=== PATIENT | male | born 1960 | race Caucasian/White ===

== ENCOUNTER → 2018-12-22 14:48 | Outpatient (CLI) | payer MEDICARE, MEDICAID, SELFPAY ==
--- NOTE | 2018-12-22 15:22 | CT_ITS ---
STUDY: CT PELVIS WITHOUT CONTRAST REASON FOR EXAM: Male, 58 years old. Nonpalpable mass of the right buttock RADIATION DOSAGE (If Supplied By Facility): CTDIvol = ( 27.99 ) mGy, DLP = ( 1045.03 ) mGycm TECHNIQUE: Transaxial imaging of the pelvis was performed without oral contrast, and without intravenous administration of contrast material. Multiplanar coronal and sagittal images were reformatted. Individualized dose optimization techniques were used for this CT. COMPARISON: None. FINDINGS: Normal urinary bladder. Normal visualized small intestine. There are multiple colonic diverticula of the sigmoid colon consistent with chronic diverticulosis. There is no pelvic fluid. There is no pelvic lymphadenopathy. There is diffuse atherosclerotic calcification of the pelvic arteries. There is catheter in the right lower abdominal wall entering to the peritoneal cavity. There is degenerative change of the lower spine. There is mild sacroiliac spurring. There is mild spurring of the bilateral hips. There is focal asymmetric enlargement of the right gluteus fior, corresponding to the region of mass, series 2 images 65/87 through 70/87. There is adjacent subcutaneous edema. CT/Pelvis without IV Contrast IMPRESSION: Muscular enlargement of the right gluteus foir suggesting hematoma versus recent strain. Electronically Signed: Lambert Jean MD at 19:37 EDT , Service support ,
== END ==
PROVIDERS: Family Provider Family Medicine; PCP Family Medicine; Referring Provider Nurse Practitioner Adult Health; Visit Provider Nurse Practitioner Adult Health
DX: R22.2 Localized swelling, mass and lump, trunk (principal)
CPT/HCPCS: 72192

== ENCOUNTER → 2019-01-08 09:22 | Outpatient (CLI) | payer MEDICARE, MEDICAID, SELFPAY ==
[2018-12-29 13:52] VITALS: BMI 25.7
--- NOTE | 2019-01-08 09:25 | CT_ITS ---
STUDY: CT ABDOMEN AND PELVIS WITH CONTRAST REASON FOR EXAM: Male, 58 years old. Right Gluteal swelling RADIATION DOSAGE (If Supplied By Facility): CTDIvol = ( 12.12 ) mGy, DLP = ( 986.94 ) mGycm TECHNIQUE: Transaxial images were obtained from the dome of the diaphragm to the symphysis pubis without oral contrast. IV/Oral Isovue 370 100 was administered. Sagittal and coronal images were reconstructed. Individualized dose optimization techniques were used for this CT. COMPARISON: December 22, 2018 CT scan pelvis FINDINGS: The visualized lung bases are unremarkable. The visualized portions of the heart are within normal limits. Normal liver. Normal gallbladder and extrahepatic biliary system. There are multiple benign calcified granulomata of the spleen. Normal pancreas. Normal bilateral adrenal glands. 4.7 mm cyst in the right kidney there is no evidence of hydronephrosis. Normal left kidney. There is contrast in the stomach. Normal small intestine. There is moderate stool in the colon. There is diverticulosis without diverticulitis. The appendix is visualized and appears normal. The aorta is minimally calcified. There is calcification at the bifurcation with up to moderate narrowing of the right side common iliac its takeoff. There is a suggestion of possible minimal focal dissection involving the right common iliac versus artifact image #68. Normal inferior vena cava. There are a few nonspecific retroperitoneal lymph nodes. There is a ventricular peritoneal shunt extending into the right side of the abdomen at the level of the cecum with a termination point in the mid abdomen. Normal urinary bladder. The prostate appears minimally enlarged. It measures 4.1 x 5 cm. Again noted is a enlarged appearance of the right peripheral gluteus fior muscles and extends towards the insertion in the greater trochanter.. There is mild focal center located edema without definitive focal abscess formation. There is peripheral soft tissue edema. When compared to the prior study is relatively similar in appearance although today's study contains contrast and there is visualized enhancement. In that area there is not only a thickened appearance of the muscular structures but there is also increased vascularity. There is fairly similar-appearing enthesopathy at the greater trochanters. There is multilevel degenerative change within the lumbar spine with multilevel osteophytosis. At L4-L5 there is a minimal broad disc bulge without significant neural foramina narrowing or central stenosis. L5-S1 there is a minimal broad disc bulge with minimal neural foramina narrowing. Within the right side of the ilium there is a sclerotic density measuring 2.4 mm and 2.7 mm. There is a small sclerotic density within the right acetabulum that measures 2.8 mm. There is one in the left side acetabulum. CT/Abdomen/Pelvis WITH Contrast IMPRESSION: There is a fairly diffusely enhancing focus of the right side lateral gluteus muscles towards the insertion at the greater trochanter best seen on image #[id number] -[id number] axial views without definitive focal mass. There is increased vascularity and mild centrally located edema without definitive abscess formation. There is superficial edema subcutaneous. Consider history of trauma or chronic trauma, this could represent a injury to the muscle, possible myositis. Recommend correlation any history of trauma or injection into the muscle. Alternatively this could represent a potentially more infiltrative intramuscular process. Recommend consideration for MRI of the pelvis with particular attention to the gluteus muscles for further characterization as MRI is more specific for soft tissue injuries. Ventricular peritoneal shunt. Nonspecific small sclerotic densities within the pelvis is a fairly well-circumscribed and nonspecific recommend correlation with any history of neoplasm for osteoblastic disease. Potentially a bone scan would be helpful. Constipation and diverticulosis no evidence of diverticulitis. 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 Limited visualization of the lung bases. Electronically Signed: Blaire Everett MD at 9:47 EST Tel , Service support ,
== END ==
PROVIDERS: Family Provider Family Medicine; PCP Family Medicine; Referring Provider Surgery; Visit Provider Surgery
DX: R22.2 Localized swelling, mass and lump, trunk (principal)
CPT/HCPCS: 74177; Q9967

== ENCOUNTER → 2020-08-09 14:20 | Outpatient (CLI) | payer MEDICARE, MEDICAID, SELFPAY ==
[2020-07-18 10:23] VITALS: BMI 25.7
--- NOTE | 2020-08-09 14:23 | CT_ITS ---
EXAM: CT HEAD WITHOUT INTRAVENOUS CONTRAST : 1960 CLINICAL INDICATION: History of intracerebral hemorrage Tamp; shunt TECHNIQUE: Multiple axial images were obtained of the head without intravenous contrast. This CT exam was performed using one or more of the following dose reduction techniques: automated exposure control, adjustment of the mA and/or kV according to patient size, and/or use of iterative reconstruction technique. This report was created using [employer] report generation technology. COMPARISON: None. FINDINGS: BRAIN AND EXTRA-AXIAL SPACES: There is minimal encephalomalacia in the posterior left temporal lobe. No intra- or extra-axial hemorrhage. BONES/JOINTS: There are postsurgical changes from a right sided craniotomy. No discrete lytic or blastic abnormalities. SINUSES: Unremarkable as visualized. Clear. MASTOID AIR CELLS: Unremarkable. Clear. ORBITS: Visualized globes, extraocular muscles, optic nerves and retrobulbar fat appear unremarkable. TUBES, LINES AND DEVICES: Ventricular shunt is in place entering from the right frontal lobe with the distal tip in the region of the anterior third ventricle. CT/Brain/Head without Contrast IMPRESSION: 1. No acute intracranial abnormality. 2. There are postsurgical changes with a right ventricular shunt in place. There is also encephalomalacia in the left temporal lobe which may be from a remote infarct. Individualized dose optimization techniques were used for this CT. at 5201 Reported and signed by: Yovani Castano MD Electronically Signed: Yovani Castano MD at 23:16 EDT Tel , Service support ,
== END ==
PROVIDERS: PCP Family Medicine; Referring Provider Psychiatry & Neurology Neurology; Visit Provider Psychiatry & Neurology Neurology
DX: G93.89 Other specified disorders of brain (principal)
CPT/HCPCS: 70450

== ENCOUNTER 2022-07-11 16:46 | Inpatient (IN) | payer MEDICARE, MEDICAID, SELFPAY ==
[2022-07-11] VITALS (10 sets, daily range): BP systolic 104–154; BP diastolic 72–92; PULSE 72–90; RESP 14–18; TEMP 35.8–36.6; O2SAT 94–99; BMI 25.7; BMI 26.9; BMI 25.4
--- NOTE | 2022-07-11 16:49 | CT_ITS ---
We are attempting to reach an attending provider to discuss findings. An addendum with communication details will be sent when the communication is complete. EXAMINATION : Head CT w/out contrast HISTORY : Neuro deficit, acute, stroke suspected COMPARISON : None. TECHNIQUE : Multiple contiguous axial images were obtained from the skull base to the vertex without intravenous contrast. A radiation dose optimization technique was used for this scan. FINDINGS : There is no evidence for acute intracranial hemorrhage, mass effect, or midline shift. There is no extra-axial fluid collection. Right parietal approach ventriculostomy catheter ending in the third ventricle. There are periventricular white matter changes consistent with chronic microvascular ischemic disease. There is sulcal widening and ventricular enlargement consistent with cerebral atrophy. There is normal marquez-white differentiation, without CT evidence of acute ischemia or infarct. Left temporal encephalomalacia. Stable 1.2 cm area of heterogeneous hyperattenuation in the left medulla. The skull base and calvarium are unremarkable. The orbits are unremarkable. The paranasal sinuses are clear. The mastoid air cells are well-aerated. The soft tissues are unremarkable. CT/STROKE Brain/Head without Cont IMPRESSION: No acute intracranial abnormality. 1.2 cm area of heterogeneous hyperattenuation in the left medulla, unchanged since prior on 08/09/2020. Left temporal encephalomalacia. Right parietal approach ventriculostomy catheter ending in the third ventricle. Chronic involutional and ischemic changes of the brain. Electronically Signed: Aiden Patel MD at 17:04 EDT ,
--- NOTE | 2022-07-11 16:49 | EKG12_ITS ---
Test Reason : POSS STROKE Blood Pressure : / mmHG Vent. Rate : 087 BPM Atrial Rate : 087 BPM P-R Int : 168 ms QRS Dur : 102 ms QT Int : 400 ms P-R-T Axes : 057 047 047 degrees QTc Int : 481 ms Normal sinus rhythm Prolonged QT Abnormal ECG Confirmed by RA AKINS, TORSTEN ([id number]), manuscript editor ROBBI ARMSTRONG ([id number]) on 07/15/2022 2:30:00 PM Referred By: Confirmed By:ALMA KNAPP MD
--- NOTE | 2022-07-11 16:49 | CT_ITS ---
We are attempting to reach an attending provider to discuss findings. An addendum with communication details will be sent when the communication is complete. STUDY: CTA HEAD AND NECK WITH CONTRAST REASON FOR EXAM: Male, 62 years old. CVA. Facial droop. RADIATION DOSAGE (If Supplied By Facility): CTDIvol = ( 22.13 ) mGy, DLP = ( 699.74 ) mGycm TECHNIQUE: CT angiography was performed with a multi-detector CT scanner. Data acquisition was obtained from the skull base through the vertex following intravenous administration of IV 100mL Isovue-370. MIP images were reconstructed from the axial data set. Post-processing of the angiographic images was performed, with multiplanar reformation and 3D reconstruction. Individualized dose optimization techniques were used for this CT. COMPARISON: CT of the head, July 11, 2022 FINDINGS: Normal bilateral petrous carotid arteries. There is calcified plaque formation of the right cavernous carotid artery, with a mild stenosis (less than 50%). There is calcified plaque formation of the left cavernous carotid artery, with a mild stenosis (less than 50%). Normal right A1 segments of the anterior cerebral artery. Normal left A1 segments of the anterior cerebral artery. Normal intact anterior communicating artery (ACOM). Normal bilateral A2 segments of the anterior cerebral arteries. Normal right M1 and M2 segments of the middle cerebral arteries, with a normal M1 bifurcation. Normal left M1 and M2 segments of the middle cerebral arteries, with a normal M1 bifurcation. There is non-visualization of the right posterior communicating artery (PCOM). There is non-visualization of the left posterior communicating artery (PCOM). Normal bilateral vertebral arteries. Normal basilar artery with a normal basilar bifurcation. The visualized bilateral superior cerebellar (SCA) arteries are normal. Normal bilateral P1, P2 and visualized P3 segments of the posterior cerebral arteries. There is no demonstrated aneurysm of the [place]. Stable right-sided [employer] shunt catheter. AORTIC ARCH: Atherosclerotic changes of the aortic arch without dissection or aneurysm. Normal origins of the brachiocephalic, left common carotid, and left subclavian arteries. RIGHT CAROTID ARTERIES: Normal right common carotid artery (CCA). Minimal calcific plaque at the carotid bifurcation without stenosis. Normal origin of the right internal carotid (ICA) artery without a hemodynamically significant stenosis. Normal visualized cervical portion of the right internal carotid artery. Normal origin of the right external carotid artery (ECA). LEFT CAROTID ARTERIES: Normal left common carotid artery (CCA). Normal left common carotid bulb. Normal origin of the left internal carotid (ICA) artery without a hemodynamically significant stenosis. Normal visualized cervical portion of the left internal carotid artery. Normal origin of the left external carotid artery (ECA). VERTEBRAL ARTERIES: Normal bilateral vertebral arteries. CT/STROKE CTA Head AND Neck W/Con IMPRESSION: 1. Normal CTA of the head. There is no evidence of aneurysm or large vessel occlusion 2. Minimal atherosclerotic changes of the right carotid bifurcation. Otherwise normal carotid and vertebral arteries. Electronically Signed: Isaak Landaverde DO at 17:18 EDT ,
--- NOTE | 2022-07-11 16:51 | NURSING ---
[id number] STROKE ALERT CALLED PRIOR TO ARRIVAL
--- NOTE | 2022-07-11 16:54 | ED.VIS.STROK ---
HPI History of Present Illness Chief Complaint: Stroke Alert Detail of Chief Complaint: Concern for stroke Informant: patient Narrative Narrative: Patient presents to the emergency department via EMS with concern for possible stroke. Patient was last seen well about 1500 today. Patient from [facility]. Patient apparently had a fall at approximately 11:15 AM and sustained a goose egg to the posterior part of his head. Patient apparently not on blood thinners. Does have history of seizure. Patient was noted to have per EMS a facial droop and creased responsiveness and generalized weakness in route to the hospital. Patient really cannot give me much history and is difficult to understand as he is speech is very thick and garbled. [facility] Medical History (Updated 07/11/22 @ 18:[address] Anahy Denny, DO) Abnormal posture Angina pectoris, unspecified Cerebrovascular disease, unspecified Diplopia Dysphagia, oropharyngeal phase Essential (primary) hypertension Expressive language disorder Gastro-esophageal reflux disease without esophagitis hematoma buttocks Hyperlipidemia, unspecified Hypertension Nicotine dependence, unspecified, uncomplicated Other dysphagia Unspecified abnormal involuntary movements Unspecified cataract Unsteadiness on feet Vitamin D deficiency, unspecified Home Medications atenolol 50 mg tablet 50 mg PO DAILY 12/29/18 [History Last Taken Unknown] atorvastatin 10 mg tablet 10 mg PO DAILY 12/29/18 [History Last Taken Unknown] bisacodyl 5 mg tablet (Laxative (bisacodyl)) 10 mg PO .prn 12/29/18 [History Last Taken Unknown] cholecalciferol (vitamin D3) 25 mcg (1,000 unit) capsule 2,000 unit PO DAILY 12/29/18 [History Last Taken Unknown] docusate sodium 100 mg capsule 100 mg PO DAILY 12/29/18 [History Last Taken Unknown] isosorbide mononitrate 30 mg tablet,extended release 24 hr 30 mg PO DAILY 12/29/18 [History Last Taken Unknown] lisinopril 10 mg tablet 10 mg PO DAILY 12/29/18 [History Last Taken Unknown] loperamide 2 mg tablet (Anti-Diarrheal (loperamide)) 2 mg PO Q1-4H 12/29/18 [History Last Taken Unknown] nitroglycerin 0.4 mg sublingual tablet (Nitrostat) 0.4 mg sublingual Q5-15M 12/29/18 [History Last Taken Unknown] promethazine 25 mg tablet 25 mg PO Q6H 12/29/18 [History Last Taken Unknown] albuterol sulfate 2.5 mg/3 mL (0.083 %) solution for nebulization 2.5 mg inhalation Q4H PRN sob 07/31/20 [History Last Taken Unknown] calcium carbonate 500 mg calcium (1,250 mg) capsule 500 mg PO Q6H PRN heart burn 07/31/20 [History Last Taken Unknown] omeprazole 20 mg capsule,delayed release 20 mg PO DAILY 07/31/20 [History Last Taken Unknown] sodium phosphates 9.5 gram-3.5 gram/59 mL enema 118 ml NM ONCE PRN constipation 07/31/20 [History Last Taken Unknown] calcium carbonate 200 mg calcium (500 mg) chewable tablet (Antacid (calcium carbonate)) 400 mg PO Q6H PRN 09/25/20 [History Last Taken Unknown] magnesium hydroxide 400 mg/5 mL oral suspension (Milk of Magnesia) 30 ml PO DAILY PRN constipation 09/25/20 [History Last Taken Unknown] polyethylene glycol 3350 17 gram/dose oral powder 17 g PO DAILY PRN constipation 09/25/20 [History Last Taken Unknown] primidone 50 mg tablet 50 mg PO TID 09/25/20 [History Last Taken Unknown] Allergy/AdvReac Type Severity Reaction Status Date / Time No Known Allergies Allergy Verified 07/11/22 16:51 Surgical History (Updated 07/11/22 @ 18:[address] Anahy Denny, DO) Hx of brain surgery Social History Smoking Status: Current every day smoker tobacco type: cigarettes Tobacco: How many years used: 43 Electronic Cigarette Use: not used second hand exposure: No alcohol intake: never substance use type: does not use ROS ROS ED Review of Systems ROS Unobtainable: other Constitutional Constitutional ED: Reports lethargy; Denies chills, fever(s), sweats or weight loss Eyes Eyes: Denies blurry vision, change in vision or diplopia ENT ENT ED: Denies rhinorrhea or sore throat Cardiovascular Cardiovascular: Denies chest pain, orthopnea or racing heartbeat Respiratory/Chest Respiratory/Chest: Denies cough, dyspnea, dyspnea on exertion, orthopnea or sputum Gastrointestinal Gastrointestinal: Denies abdominal pain, diarrhea, nausea or vomiting Genitourinary Genitourinary ED: Denies dysuria, hematuria or urinary frequency Musculoskeletal Musculoskeletal: Denies arthralgias, back pain, myalgias or neck pain Integumentary Denies abscess, Abrasions or rash Neurologic Neurologic: Reports other Details: Facial droop and garbled speech, some of the garbled speech is chronic per nursing staff at [facility]. ; Denies headache(s) or weakness Psychiatric Psychiatric: Denies anxiety, depression or suicidal thoughts Endocrine Endocrinology: Denies polydipsia, polyphagia or polyuria Hematologic/Lymphatic Hematologic/Lymphatic: Denies easy bleeding, easy bruising or lymphadenopathy Allergic/Immunologic Allergic/Immunologic ED: Denies mouth swelling, tongue swelling or urticaria EXAM Physical Exam Const Vital Signs: 07/11/22 16:47 07/11/22 16:59 07/11/22 17:08 Temperature 96.4 F L Temperature Source Temporal Pulse Rate 82 88 89 Respiratory Rate 14 18 16 Blood Pressure 119/74 125/78 H 125/78 H Blood Pressure Mean 89 93 93 Pulse Ox 94 94 96 Oxygen Delivery Method Room Air Room Air Room Air 07/11/22 17:30 07/11/22 18:00 07/11/22 18:00 Temperature Temperature Source Pulse Rate 82 90 90 Respiratory Rate 16 18 Blood Pressure 124/76 H 127/78 H Blood Pressure Mean 92 94 Pulse Ox 99 95 Oxygen Delivery Method Room Air Room Air Positive well nourished and well developed General Appearance ED: well developed and NAD HEENT Reports TM's clear and moist mucous membranes normocephalic and atraumatic; Negative for trauma or tenderness Tympanic Membrane ED: Yes TM's clear Eyes PERRL and EOMs intact bilaterally Eyes Narrative: Patient with right facial droop General Eye ED: Negative for pale conjunctiva or scleral icterus Neck no lymphadenopathy, supple and no JVD General: Negative for tenderness Chest Wall inspection of chest normal and palpation of chest normal Chest: Negative for tenderness Resp normal respiratory effort and clear to auscultation bilaterally Effort and Inspection: Negative for respiratory distress or pain with movement Auscultation: Negative for rhonchi, wheezes or diminished lung sounds Cardio regular rate, regular rhythm, S1 normal heart sound, S2 normal heart sound and no murmurs Peripheral Pulses: pulses 2+ throughout GI normal to inspection, nondistended, normoactive bowel sounds, soft to palpation, non-tender, non-distended and no masses Back/Spine no CVA tenderness and no thoracic nor lumbar tenderness Extremity normal to inspection General Extremety ED: Negative for edema General Extremity: Negative for edema Neuro oriented x3, CN's II-XII intact bilaterally, no sensory deficits noted and gait normal Neuro Narrative: Right facial droop and dysarthria. NIH stroke scale was a 4. Sensorium / Orientation: awake, alert, oriented to person, oriented to place and oriented to time Motor Exam: strength 5/5 throughout and strength abnormal Psych mental status grossly normal Skin no rashes or lesions noted and no wounds MDM MDM MDM Narrative Medical decision making narrative: Patient presents via EMS with concern for possible stroke. Stroke team was called right away. NIH in the hallway was a 4 for slurred speech and right facial droop. CT brain without contrast obtained was unremarkable no evidence for intracranial hemorrhage. Patient was evaluated by stroke neurologist who did not feel patient met thrombolytic criteria given the fact that he has a CLINICAL LABORATORY DIRECTOR shunt and he had a fall earlier today and has had prior episodes of intracranial hemorrhage. It was unclear if patient was truly having stroke versus deficits from prior stroke versus metabolic encephalopathy. Lab work-up unremarkable. Urinalysis unremarkable. Troponin was normal. CT brain without contrast showed no evidence of intracranial hemorrhage. CTA of head neck showed mild plaque formation at the origin of the right carotid. Ammonia level was normal. CLINICAL LABORATORY DIRECTOR shunt obtained was unremarkable. Patient does not have a headache or concern for shunt malfunction at this time. Case discussed with hospitalist to evaluate patient for admission. Lab Data Attestation: I reviewed the patient's lab results. Labs: Laboratory Results - last 24 hr 07/11/22 07/11/22 07/11/22 17:00 17:00 17:00 WBC 6.1 RBC 4.76 Hgb 14.7 Hct 44.0 MCV 92.4 MCH 30.9 MCHC 33.4 RDW Std Deviation 48.1 H RDW Coeff of Jacqueline 14.2 Plt Count 178 MPV 10.3 Immature Gran % (Auto) 0.200 Neut % (Auto) 56.1 Lymph % (Auto) 30.1 [place] % (Auto) 9.4 Eos % (Auto) 3.5 Baso % (Auto) 0.7 Absolute Neuts (auto) 3.4 Absolute Lymphs (auto) 1.83 Nucleated RBC % 0 PT 14.2 INR 1.1 APTT 29.3 Sodium 142 Potassium 3.3 L Chloride 105 Carbon Dioxide 28.0 Anion Gap 9 BUN 14 Creatinine 0.72 Estim Creat Clear Calc 101.60 Est GFR (MDRD) Af Amer 143 Est GFR (MDRD) Non-Af 118 BUN/Creatinine Ratio 19.6 Glucose 110 H Calcium 8.4 L Ammonia Troponin I High Sens 4 Urine Color Urine Clarity Urine pH Ur Specific Chandler Urine Protein Urine Glucose (UA) Urine Ketones Urine Occult Blood Urine Nitrite Urine Bilirubin Urine Urobilinogen Ur Leukocyte Esterase Urine RBC Urine WBC Ur Squamous Epith Cells Urine Bacteria Urine Mucus 07/11/22 07/11/22 17:28 17:37 WBC RBC Hgb Hct MCV MCH MCHC RDW Std Deviation RDW Coeff of Jacqueline Plt Count MPV Immature Gran % (Auto) Neut % (Auto) Lymph % (Auto) [place] % (Auto) Eos % (Auto) Baso % (Auto) Absolute Neuts (auto) Absolute Lymphs (auto) Nucleated RBC % PT INR APTT Sodium Potassium Chloride Carbon Dioxide Anion Gap BUN Creatinine Estim Creat Clear Calc Est GFR (MDRD) Af Amer Est GFR (MDRD) Non-Af BUN/Creatinine Ratio Glucose Calcium Ammonia 27.0 Troponin I High Sens Urine Color Yellow Urine Clarity Clear Urine pH 7.0 Ur Specific [place] 1.010 Urine Protein Negative Urine Glucose (UA) Normal Urine Ketones 15 H Urine Occult Blood Negative Urine Nitrite Negative Urine Bilirubin Negative Urine Urobilinogen Normal Ur Leukocyte Esterase 25 H Urine RBC 0 SEEN Urine WBC 0 SEEN Ur Squamous Epith Cells 0 SEEN Urine Bacteria 0 SEEN Urine Mucus 0 SEEN Radiography Diagnostic Testing: Clinical Impression(s) from Imaging Studies Brain CT 07/11/22 16:49 IMPRESSION: No acute intracranial abnormality. 1.2 cm area of heterogeneous hyperattenuation in the left medulla, unchanged since prior on 08/09/2020. Left temporal encephalomalacia. Right parietal approach ventriculostomy catheter ending in the third ventricle. Chronic involutional and ischemic changes of the brain. Electronically Signed: Aiden Patel MD at 17:04 EDT , ADDENDUM: 07/11/22 1712 IMPRESSION: No acute intracranial abnormality. 1.2 cm area of heterogeneous hyperattenuation in the left medulla, unchanged since prior on 08/09/2020. Left temporal encephalomalacia. Right parietal approach ventriculostomy catheter ending in the third ventricle. Chronic involutional and ischemic changes of the brain. N.B. : The above Results were Read Back by Aiden Patel MD to Anahy Denny DO, and understanding confirmed on 07/11/2022 17:05:04 (ET). Electronically Signed: Aiden Patel MD at 17:04 EDT , Head/Neck CTA 07/11/22 16:49 IMPRESSION: 1. Normal CTA of the head. There is no evidence of aneurysm or large vessel occlusion 2. Minimal atherosclerotic changes of the right carotid bifurcation. Otherwise normal carotid and vertebral arteries. Electronically Signed: Isaak Landaverde DO at 17:18 EDT , ADDENDUM: 07/11/22 1726 IMPRESSION: 1. Normal CTA of the head. There is no evidence of aneurysm or large vessel occlusion 2. Minimal atherosclerotic changes of the right carotid bifurcation. Otherwise normal carotid and vertebral arteries. N.B. : The above Results were Read Back by Isaak Landaverde DO to Anahy Denny DO, and understanding confirmed on 07/11/2022 17:19:58 (ET). Electronically Signed: Isaak Landaverde DO at 17:18 EDT Reading Location ID and State: [id number] / [employer] Tel [phone], Service support , Chest X-Ray 07/11/22 17:15 IMPRESSION: No acute radiographic abnormalities. Electronically Signed: Aiden Patel MD at 18:14 EDT , 1 view KUB obtained interpreted by myself as no acute disease process. With no evidence of break in the CLINICAL LABORATORY DIRECTOR shunt. Radiology in agreement. 1 view chest x-ray obtained interpreted by myself as no evidence of infiltrate or pneumothorax and no evidence of break in the CLINICAL LABORATORY DIRECTOR shunt. Radiology in agreement. EKG Initial EKG: Attestation: I personally reviewed and interpreted this EKG as follows: Comments: Sinus rhythm with a rate of 87 bpm with no acute ST segment changes Discharge Plan Dx/Rx/DC Orders Clinical Impression: Acute CVA (cerebrovascular accident), Dysarthria, Facial droop, S/P CLINICAL LABORATORY DIRECTOR shunt, History of intracranial hemorrhage Disposition Disposition: Acute Care [facility]
--- NOTE | 2022-07-11 17:00 | CM.ED ---
Social Work Note Referral Source: Stroke Alert Referral Reason: emotional support SW responded to stroke alert, no family present. SW informed by RN patient is from [place] and his sister is his HCPOA. SW available if family arrives or other needs arise. Anastasiia Peterson MSW, MARISOL
[2022-07-11 17:08] LABS: Absolute Lymphocyte Count 1.83 X10^3/uL (0.83-4.51); Absolute Neutrophil Count 3.4 X10^3/uL (2.0-7.7); Basophil# 0.04 X10^3/uL; Basophil% 0.7 % (0-1); Eosinophil# 0.21 X10^3/uL; Eosinophils% 3.5 % (0-5); Hemoglobin 14.7 g/dL (13.0-16.5); Lymphocyte # 1.83 X10^3/ul (0.83-4.51); Lymphocyte % 30.1 % (19-41); Mean Corp Hgb Conc 33.4 g/dL (32-36); Mean Corpuscular Hgb 30.9 pg (27.0-32.0); Mean Corpuscular Volume 92.4 fL (80-94); Mean Platelet Vol. 10.3 fl (6.2-12.0); Monocyte# 0.57 X10^3/uL; Monocyte% 9.4 % (0-10); NRBC Flagged by Analyzer 0 % (0-5); Neutrophil # 3.42 X10^3/uL (2.7-7.7); Neutrophil % 56.1 % (47-70); Platelet Count 178 K/mm3 (150-450); RBC Distribution Width CV 14.2 % (11.6-14.6); RBC Distribution Width SD 48.1 fl (35.1-43.9); Red Blood Count 4.76 M/mm3 (4.6-6.2); White Blood Count 6.1 K/mm3 (4.4-11.0)
--- NOTE | 2022-07-11 17:15 | RAD_ITS ---
INDICATION: Neuro deficit, acute, stroke suspected EXAMINATION/TECHNIQUE: X-RAY - XR Chest 1 View COMPARISON: None. FINDINGS: The lungs are clear. The cardiomediastinal silhouette is unremarkable. No pleural effusion or pneumothorax. No acute osseous abnormalities. RAD/Chest 1 View IMPRESSION: No acute radiographic abnormalities. Electronically Signed: Aiden Patel MD at 18:14 EDT ,
[2022-07-11 17:36] LABS: Bacteria 0 SEEN /hpf (None Seen); Mucous, Urine 0 SEEN /hpf (<or=2+); Red Blood Cells-Urine 0 SEEN /hpf (0-5); Squamous Epithelial Cells - UA 0 SEEN /hpf (0-5); White Blood Cells 0 SEEN /hpf (0-5)
[2022-07-11 17:39] LABS: International Normalized Ratio 1.1; Prothrombin Time (Protime)PT. 14.2 SECONDS (11.7-14.9)
[2022-07-11 17:40] LABS: Partial Thromboplast Time 29.3 Seconds (24.1-36.2)
[2022-07-11 17:43] LABS: Color, Urine Yellow (Yellow); Glucose, Dipstick Normal (Normal); Ketone-Dipstick 15 mg/dl (Negative); Leukocyte Esterase-Dipstick 25 /ul (Negative); Nitrite-Dipstick Negative (Negative); Occult Blood-Urine Negative /ul (Negative); Protein-Dipstick Negative (Negative); Urine Bilirubin Dipstick Negative (Negative); Urine Clarity Clear (Clear); Urine Urobilinogen Normal (Normal)
--- NOTE | 2022-07-11 17:45 | RAD_ITS ---
INDICATION: mental status change EXAMINATION/TECHNIQUE: X-RAY - XR Abdomen 1 View COMPARISON: None FINDINGS: BOWEL GAS PATTERN: Non-obstructive. No bowel or stomach distention. WAITRESS shunt seen. FREE AIR: Not assessed on a single supine view. ORGANOMEGALY: Not seen. CALCIFICATIONS: No abnormal calcifications observed. LOWER CHEST: No acute pathology. BONES AND SOFT TISSUES: No acute pathology. RAD/Abdomen Single View IMPRESSION: Non-obstructive bowel gas pattern. Electronically Signed: Aiden Patel MD at 18:15 EDT ,
[2022-07-11 17:54] LABS: Anion Gap 9 (5-15); BUN 14 mg/dL (7-18); BUN/Creat Ratio 19.6 RATIO (10-20); Calcium,Total 8.4 mg/dL (8.5-10.1); Chloride 105 mmol/L (98-107); Creatinine, Serum 0.72 mg/dL (0.70-1.30); EST Glomerular Filtration Rate 118 mL/min (>60); Est Glom Filt Rate - Afr Amer 143 mL/min (>60); Glucose 110 mg/dL (74-106); Potassium 3.3 mmol/L (3.5-5.1); Sodium Level 142 mmol/L (136-145); Troponin-I HS 4 pg/mL (3.0-78.0)
--- NOTE | 2022-07-11 18:41 | ED.RN ---
pt not willing to open eyes to complete through NIH assessment.
--- NOTE | 2022-07-11 18:44 | ED.RN ---
[facility] updated on admission.
--- NOTE | 2022-07-11 19:06 | PCM.HP.STD ---
HPI - General General Date of Admission: 07/11/22 Date of Service: 07/11/22 Chief Complaint: change in mental status HPI Narrative SHIMON MYRICK, is a 62 M who presents after being found down at his long term. There is noted the patient was more confused from his baseline. Patient has a history of intracranial hemorrhage, obstructive hydrocephalus, tremor and is very debilitated at baseline. Patient does have slurred speech at baseline but was noted to be much more profound today. Is reported the patient was incontinent. Patient has no prior history of seizures despite his prior neurologic insults. History is obtained primarily through the emergency room physician as well as the patient's sister, who is at bedside as the patient is awake but his speech is very difficult to understand and he is very listless and not actively engaged in conversation. [facility] Medical History Abnormal posture Angina pectoris, unspecified Cerebrovascular disease, unspecified Diplopia Dysphagia, oropharyngeal phase Essential (primary) hypertension Expressive language disorder Gastro-esophageal reflux disease without esophagitis hematoma buttocks Hyperlipidemia, unspecified Hypertension Nicotine dependence, unspecified, uncomplicated Other dysphagia Unspecified abnormal involuntary movements Unspecified cataract Unsteadiness on feet Vitamin D deficiency, unspecified Home Medications atenolol 50 mg tablet 50 mg PO DAILY 12/29/18 [History Last Taken Unknown] atorvastatin 10 mg tablet 10 mg PO DAILY 12/29/18 [History Last Taken Unknown] bisacodyl 5 mg tablet (Laxative (bisacodyl)) 10 mg PO .prn 12/29/18 [History Last Taken Unknown] cholecalciferol (vitamin D3) 25 mcg (1,000 unit) capsule 2,000 unit PO DAILY 12/29/18 [History Last Taken Unknown] docusate sodium 100 mg capsule 100 mg PO DAILY 12/29/18 [History Last Taken Unknown] isosorbide mononitrate 30 mg tablet,extended release 24 hr 30 mg PO DAILY 12/29/18 [History Last Taken Unknown] lisinopril 10 mg tablet 10 mg PO DAILY 12/29/18 [History Last Taken Unknown] loperamide 2 mg tablet (Anti-Diarrheal (loperamide)) 2 mg PO Q1-4H 12/29/18 [History Last Taken Unknown] nitroglycerin 0.4 mg sublingual tablet (Nitrostat) 0.4 mg sublingual Q5-15M 12/29/18 [History Last Taken Unknown] promethazine 25 mg tablet 25 mg PO Q6H 12/29/18 [History Last Taken Unknown] albuterol sulfate 2.5 mg/3 mL (0.083 %) solution for nebulization 2.5 mg inhalation Q4H PRN sob 07/31/20 [History Last Taken Unknown] calcium carbonate 500 mg calcium (1,250 mg) capsule 500 mg PO Q6H PRN heart burn 07/31/20 [History Last Taken Unknown] omeprazole 20 mg capsule,delayed release 20 mg PO DAILY 07/31/20 [History Last Taken Unknown] sodium phosphates 9.5 gram-3.5 gram/59 mL enema 118 ml KS ONCE PRN constipation 07/31/20 [History Last Taken Unknown] calcium carbonate 200 mg calcium (500 mg) chewable tablet (Antacid (calcium carbonate)) 400 mg PO Q6H PRN 09/25/20 [History Last Taken Unknown] magnesium hydroxide 400 mg/5 mL oral suspension (Milk of Magnesia) 30 ml PO DAILY PRN constipation 09/25/20 [History Last Taken Unknown] polyethylene glycol 3350 17 gram/dose oral powder 17 g PO DAILY PRN constipation 09/25/20 [History Last Taken Unknown] primidone 50 mg tablet 50 mg PO TID 09/25/20 [History Last Taken Unknown] Allergy/AdvReac Type Severity Reaction Status Date / Time No Known Allergies Allergy Verified 07/11/22 16:51 Surgical History Hx of brain surgery Social History Smoking Status: Current every day smoker tobacco type: cigarettes Tobacco: How many years used: 43 Electronic Cigarette Use: not used second hand exposure: No alcohol intake: never substance use type: does not use ROS ROS Narrative According patient's sister, his head is chronically slumped over. limited as patient is a rather poor historian but otherwise all review of systems were negative except as mentioned above in the history of present illness and the other review of systems. Vital Signs Vital Signs Vital Signs: 07/11/22 16:47 07/11/22 16:59 07/11/22 17:08 Temperature 35.8 C L Temperature Source Temporal Pulse Rate 82 88 89 Respiratory Rate 14 18 16 Blood Pressure 119/74 125/78 H 125/78 H Blood Pressure Mean 89 93 93 Pulse Ox 94 94 96 Oxygen Delivery Method Room Air Room Air Room Air 07/11/22 17:30 07/11/22 18:00 07/11/22 18:00 Temperature Temperature Source Pulse Rate 82 90 90 Respiratory Rate 16 18 Blood Pressure 124/76 H 127/78 H Blood Pressure Mean 92 94 Pulse Ox 99 95 Oxygen Delivery Method Room Air Room Air 07/11/22 18:30 07/11/22 18:35 Temperature 36.4 C L Temperature Source Temporal Pulse Rate 86 90 Respiratory Rate 15 16 Blood Pressure 118/79 118/79 Blood Pressure Mean 92 92 Pulse Ox 98 95 Oxygen Delivery Method Room Air Weight Weight: 80.2 kg Body Mass Index (BMI) 26.9 Physical Exam Const Constitutional Narrative: Awake. Follows some commands. But tires very quickly overall. Had slumped over. HEENT normocephalic, head/scalp atraumatic and moist oral mucous membranes Eyes PERRL Eyes Narrative: No icterus Neck no lymphadenopathy and supple Resp normal respiratory effort, no retractions, no use of accessory muscles and clear to auscultation bilaterally Cardio regular rate, regular rhythm and S1 normal heart sound GI normal to inspection, nondistended, normoactive bowel sounds, soft to palpation, non-tender and non-distended Extremity normal to inspection and full ROM Neuro moves all extremities and no focal motor deficits Neuro Narrative: Slurred speech Sensorium / Orientation: awake Psych affect normal Results Lab / Micro Data Attestation: I reviewed the patient's lab results. Result Diagrams: 07/11/22 17:00 07/11/22 17:00 Labs: Laboratory Results - last 24 hr 07/11/22 17:00: WBC 6.1, RBC 4.76, Hgb 14.7, Hct 44.0, MCV 92.4, MCH 30.9, MCHC 33.4, RDW Std Deviation 48.1 H, RDW Coeff of Jacqueline 14.2, Plt Count 178, MPV 10.3, Immature Gran % (Auto) 0.200, Neut % (Auto) 56.1, Lymph % (Auto) 30.1, [place] % (Auto) 9.4, Eos % (Auto) 3.5, Baso % (Auto) 0.7, Absolute Neuts (auto) 3.4, Absolute Lymphs (auto) 1.83, Nucleated RBC % 0 07/11/22 17:00: PT 14.2, INR 1.1, APTT 29.3 07/11/22 17:00: Sodium 142, Potassium 3.3 L, Chloride 105, Carbon Dioxide 28.0, Anion Gap 9, BUN 14, Creatinine 0.72, Estim Creat Clear Calc 101.60, Est GFR (MDRD) Af Amer 143, Est GFR (MDRD) Non-Af 118, BUN/Creatinine Ratio 19.6, Glucose 110 H, Calcium 8.4 L, Troponin I High Sens 4 07/11/22 17:28: Urine Color Yellow, Urine Clarity Clear, Urine pH 7.0, Ur Specific [place] 1.010, Urine Protein Negative, Urine Glucose (UA) Normal, Urine Ketones 15 H, Urine Occult Blood Negative, Urine Nitrite Negative, Urine Bilirubin Negative, Urine Urobilinogen Normal, Ur Leukocyte Esterase 25 H, Urine RBC 0 SEEN, Urine WBC 0 SEEN, Ur Squamous Epith Cells 0 SEEN, Urine Bacteria 0 SEEN, Urine Mucus 0 SEEN 07/11/22 17:37: Ammonia 27.0 EKG Initial EKG: Attestation: I personally reviewed and interpreted this EKG as follows: Prior EKG tracings: available for review EKG Rhythm Intrepretation: Sinus Rhythm Radiology Impression Brain CT 07/11/22 16:49 IMPRESSION: No acute intracranial abnormality. 1.2 cm area of heterogeneous hyperattenuation in the left medulla, unchanged since prior on 08/09/2020. Left temporal encephalomalacia. Right parietal approach ventriculostomy catheter ending in the third ventricle. Chronic involutional and ischemic changes of the brain. Electronically Signed: Aiden Patel MD at 17:04 EDT , ADDENDUM: 07/11/22 6486 IMPRESSION: No acute intracranial abnormality. 1.2 cm area of heterogeneous hyperattenuation in the left medulla, unchanged since prior on 08/09/2020. Left temporal encephalomalacia. Right parietal approach ventriculostomy catheter ending in the third ventricle. Chronic involutional and ischemic changes of the brain. N.B. : The above Results were Read Back by Aiden Patel MD to Anahy Denny DO, and understanding confirmed on 07/11/2022 17:05:04 (ET). Electronically Signed: Aiden Patel MD at 17:04 EDT , Head/Neck CTA 07/11/22 16:49 IMPRESSION: 1. Normal CTA of the head. There is no evidence of aneurysm or large vessel occlusion 2. Minimal atherosclerotic changes of the right carotid bifurcation. Otherwise normal carotid and vertebral arteries. Electronically Signed: Isaak Landaverde DO at 17:18 EDT , ADDENDUM: 07/11/22 1726 IMPRESSION: 1. Normal CTA of the head. There is no evidence of aneurysm or large vessel occlusion 2. Minimal atherosclerotic changes of the right carotid bifurcation. Otherwise normal carotid and vertebral arteries. N.B. : The above Results were Read Back by Isaak Landaverde DO to Anahy Denny DO, and understanding confirmed on 07/11/2022 17:19:58 (ET). Electronically Signed: Isaak Landaverde DO at 17:18 EDT , Chest X-Ray 07/11/22 17:15 IMPRESSION: No acute radiographic abnormalities. Electronically Signed: Aiden Patel MD at 18:14 EDT , Assessment & Plan Assessment/Plan (1) Encephalopathy: PLAN: Etiology includes stroke versus seizure versus fall with concussion versus other I suspect less likely that this is an acute stroke as patient has chronic neurologic impairments and is long term bound. 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 Suspect what ever insult has caused him to be more profoundly debilitated due to his underlying neurologic issues. Some plan is for an MRI of the brain, EEG, echo as well as physical and Occupational Therapy. We will have bedside swallow evaluation . (2) Hypokalemia: PLAN: Replace. Check magnesium. PLAN: Plan Chronic conditions History of FULL STACK JAVA DEVELOPER shunt: No longer functional. Has not seen neurosurgery in many years. Tremor, chronic. Continue topiramate and primidone. Follow-up neurology as outpatient. Nicotine dependence: Patient still smokes. Continue nicotine patch. Hypertension Hyperlipidemia: Continue with statin VTE prophylaxis: Chemical prophylaxis contraindicated in light of patient's history of intracranial hemorrhage. SCDs. CODE STATUS: Addressed with the patient and his sister. Patient was to be full CODE STATUS. I did speak with the sister that if he were to survive cardiopulmonary arrest that he would be profoundly debilitated and would have a long recovery complicated by his underlying neurologic processes. Charges/Coding Visit Charges Inpatient E&M: 02715 Init Hosp L3
--- NOTE | 2022-07-11 19:34 | ECHOCS_ITS ---
Reason For Study: TIA/CVA Procedure This was a 2D Doppler, Color Flow transthoracic echocardiogram. Technically difficult study due to patients condition. Patient was scanned sitting in the room recliner and was combative. Contrast injection was performed. Exam performed portable in patient room. Left Ventricle Normal size and thickness. The left ventricular ejection fraction is 65 %. Normal diastology for age. Right Ventricle Normal right ventricle. Atria Normal left atrium. The right atrium is not well visualized. Bubble contrast study technically suboptimal however no obvious PFO/ASD noted. Mitral Valve The mitral valve is structurally normal. No prolapse or stenosis seen. Trivial eccentric mitral valve insufficiency. Tricuspid Valve The tricuspid valve is not well visualized. Aortic Valve Aortic sclerosis, no stenosis. Pulmonic Valve The pulmonic valve is not well visualized. Great Vessels Normal sized aortic root. Pericardium/Pleural No pericardial effusion. Medication Diluted definity 3ml given slow IV push to enhance endocardial definition. Performed a rapid injection of agitated mix of 9 cc saline and 1cc air to assess for atrial septal defect. MMode/2D Measurements & Calculations LVIDd: 4.1 cm IVSd: 1.0 cm Ao root diam: 3.1 cm LVIDs: 3.0 cm LVPWd: 0.93 cm FS: 26.5 % LAV(MOD-bp): 36.9 ml LVAd ap4: 28.5 cm2 SV(MOD-sp4): 56.5 ml LAV(MOD-bp) Indexed: 19.5 ml/m2 LVLd ap4: 7.3 cm LAV(MOD-sp2): 37.8 ml EDV(MOD-sp4): 94.4 ml LAV(MOD-sp4): 35.2 ml EDV(sp4-el): 94.2 ml LVAs ap4: 17.1 cm2 LVLs ap4: 6.7 cm ESV(MOD-sp4): 37.8 ml ESV(sp4-el): 37.1 ml EF(MOD-sp4): 59.9 % EF(sp4-el): 60.6 % SV(sp4-el): 57.1 ml LA A4 area: 15.1 cm2 Time Measurements MV dec time: 0.22 sec Doppler Measurements & Calculations MV E max herbie: 52.0 cm/sec Lat Peak E' Herbie: 11.2 cm/sec Med Peak E' Herbie: 8.2 cm/sec MV A max herbie: 76.4 cm/sec E/E' lat: 4.6 E/E' med: 6.3 MV E/A: 0.68 MV V2 max: 67.6 cm/sec MV P1/2t max herbie: 51.0 cm/sec Ao V2 max: 80.0 cm/sec MV max P.8 mmHg MV P1/2t: 65.2 msec Ao max P.6 mmHg MV V2 mean: 32.4 cm/sec MV mean P.53 mmHg MV dec slope: 229.0 cm/sec2 MV V2 VTI: 18.9 cm MVA(P1/2t): 3.4 cm2 LV V1 max: 73.9 cm/sec PA V2 max: 85.8 cm/sec LV V1 max P.2 mmHg ECHO/Echo Complete W/ Contrast Interpretation Summary Technically difficult study. The left ventricular ejection fraction is 65 %. Bubble contrast study technically suboptimal however no obvious PFO/ASD noted. Aortic sclerosis, no stenosis. Ordering Physician: Kai Elizabeth Referring Physician: Manuelito Solo Performed By: Oneil Delgado RCS
--- NOTE | 2022-07-11 20:16 | NURSING ---
called sister- she just left updated mri paperwork
[2022-07-11] MEDS: KCL 20MEQ in 0.9% NS 20 MEQ/1,000 ML IV.SOLN. 150 MEQ IV (22:59)
[2022-07-12] VITALS (7 sets, daily range): BP systolic 114–144; BP diastolic 60–82; PULSE 73–79; RESP 14–18; TEMP 36.6–36.9; O2SAT 93–97; BMI 25.4
--- NOTE | 2022-07-12 08:52 | PN.HOSP_ITS ---
Reason for Visit Reason for Visit: Diagnoses Hypokalemia (07/11/22) Encephalopathy, unspecified (07/11/22) Subjective Subjective Follow-up for acute encephalopathy/baseline decreased mental alertness/cognitive function. Objective Data Objective Data Vital Signs: Vital Signs Temp Pulse Resp BP Pulse Ox O2 Del Method 98.2 F 73 14 144/82 H 96 Room Air 07/12/22 07:14 07/12/22 07:14 07/12/22 07:14 07/12/22 07:14 07/12/22 07:35 07/12/22 07:35 Oxygen Delivery Method Room Air Weight: 167 lb 15.876 oz Body Mass Index (BMI) 25.4 Intake & Output: Intake and Output for Last 24 Hours 07/10/22 07/11/22 07/12/22 23:59 23:59 23:59 Intake Total 1000 / 1000 Output Total 450 / 450 400 / 400 Balance -450 / -450 600 / 600 Lab / Micro Data Result Diagrams: 07/11/22 17:00 07/12/22 08:50 Labs: Laboratory Results - last 24 hr 07/11/22 17:00: WBC 6.1, RBC 4.76, Hgb 14.7, Hct 44.0, MCV 92.4, MCH 30.9, MCHC 33.4, RDW Std Deviation 48.1 H, RDW Coeff of Jacqueline 14.2, Plt Count 178, MPV 10.3, Immature Gran % (Auto) 0.200, Neut % (Auto) 56.1, Lymph % (Auto) 30.1, [place] % (Auto) 9.4, Eos % (Auto) 3.5, Baso % (Auto) 0.7, Absolute Neuts (auto) 3.4, Absolute Lymphs (auto) 1.83, Nucleated RBC % 0 07/11/22 17:00: PT 14.2, INR 1.1, APTT 29.3 07/11/22 17:00: Sodium 142, Potassium 3.3 L, Chloride 105, Carbon Dioxide 28.0, Anion Gap 9, BUN 14, Creatinine 0.72, Estim Creat Clear Calc 101.60, Est GFR (MDRD) Af Amer 143, Est GFR (MDRD) Non-Af 118, BUN/Creatinine Ratio 19.6, Glucose 110 H, Calcium 8.4 L, Troponin I High Sens 4 07/11/22 17:28: Urine Color Yellow, Urine Clarity Clear, Urine pH 7.0, Ur Speci fic [place] 1.010, Urine Protein Negative, Urine Glucose (UA) Normal, Urine Ketones 15 H, Urine Occult Blood Negative, Urine Nitrite Negative, Urine Bilirubin Negative, Urine Urobilinogen Normal, Ur Leukocyte Esterase 25 H, Urine RBC 0 SEEN, Urine WBC 0 SEEN, Ur Squamous Epith Cells 0 SEEN, Urine Bacteria 0 SEEN, Urine Mucus 0 SEEN 07/11/22 17:37: Ammonia 27.0 Radiography Diagnostic Testing: Radiology Impression Brain CT 07/11/22 16:49 IMPRESSION: No acute intracranial abnormality. 1.2 cm area of heterogeneous hyperattenuation in the left medulla, unchanged since prior on 08/09/2020. Left temporal encephalomalacia. Right parietal approach ventriculostomy catheter ending in the third ventricle. Chronic involutional and ischemic changes of the brain. Electronically Signed: Aiden Patel MD at 17:04 EDT , ADDENDUM: 07/11/22 1712 IMPRESSION: No acute intracranial abnormality. 1.2 cm area of heterogeneous hyperattenuation in the left medulla, unchanged since prior on 08/09/2020. Left temporal encephalomalacia. Right parietal approach ventriculostomy catheter ending in the third ventricle. Chronic involutional and ischemic changes of the brain. N.B. : The above Results were Read Back by Aiden Patel MD to Anahy Denny DO, and understanding confirmed on 07/11/2022 17:05:04 (ET). Electronically Signed: Aiden Patel MD at 17:04 EDT , Head/Neck CTA 07/11/22 16:49 IMPRESSION: 1. Normal CTA of the head. There is no evidence of aneurysm or large vessel occlusion 2. Minimal atherosclerotic changes of the right carotid bifurcation. Otherwise normal carotid and vertebral arteries. Electronically Signed: Isaak Landaverde DO at 17:18 EDT , ADDENDUM: 07/11/22 1726 IMPRESSION: 1. Normal CTA of the head. There is no evidence of aneurysm or large vessel occlusion 2. Minimal atherosclerotic changes of the right carotid bifurcation. Otherwise normal carotid and vertebral arteries. N.B. : The above Results were Read Back by Isaak Landaverde DO to Anahy Denny DO, and understanding confirmed on 07/11/2022 17:19:58 (ET). Electronically Signed: Isaak Landaverde DO at 17:18 EDT Reading Location ID and State: [facility] / [place] Tel [phone], Service support , Chest X-Ray 07/11/22 17:15 IMPRESSION: No acute radiographic abnormalities. Electronically Signed: Aiden Patel MD at 18:14 EDT , Physical Exam Narrative Seen and examined. Patient has baseline residual neurological deficit with moderate to severe language deficit with history of 3 intracerebral hemorrhage and stroke. Patient also has obstructive hydrocephalus and had right ventriculostomy catheter/MEDIA SALES REPRESENTATIVE shunt but is not functioning. Physical exam General: Alert, Oriented x3, Cooperative, could not lay his head flat. HEENT: Atraumatic, PERRLA, EOMI, Normocephalic Oral: Oral mucosa moist. No Gingival or Mucosal Lesions/ Ulcerations Neck: Neck is twisted to the right side, chronic. Supple, No JVD, Negative Carotid Bruits Lungs: Air entry diminished in bilateral lung bases. No crepitation/rhonchi Cardiovascular: Sinus Regular Rhythm, Normal S1, Normal S2, No murmurs Abdomen: Bowel Sounds Present, Soft, Non Tender, Non-Distended : No renal angle tenderness. No suprapubic tenderness. Extremities: No edema, Capillary Refill Less than 3 Seconds Skin: No rashes, No breakdown Musculoskeletal: No Tenderness to Palpation of Joints or Extremities, keeping both lower extremities for 5 seconds. Muscle strength 4+/5 at major joints and lower extremities. Neurological: Cranial nerves II-XII grossly intact, DTR 2/4, moderate to severe language deficit and dysarthria. History of left temporal stroke/encephalomalacia Psych/Mental Status: Flat affect, gets easily irritable and agitated. Assessment & Plan Assessment/Plan (1) Encephalopathy: PLAN: Possible differentials for stroke, or worsening of residual neurological deficits/or obstructive hydrocephalus Patient currently is in baseline neurological function. He further said he did not walk since [address] Narayan states he is nonambulatory since 2014. Patient opens eyes and has significant aphasia, dysarthria and language deficit. Patient also has not seen neurosurgeon for obstructive hydrocephalus recently and as per note it seems he is MEDIA SALES REPRESENTATIVE shunt is not functioning. Patient cannot lay flat or keep head still and straight for MRI therefore it was canceled. Repeat CT ordered about 5 PM today. Clinically does not seem patient has seizure or worsening of stroke or new stroke. Patient in [facility] bound. Tremors are at baseline. As per neurologist note, patient has significant left temporal and midbrain enkephalin malacia. Tremors worsened since February 2020 with functional decline. ADL dependent, cannot feed himself. Topiramate was discontinued as it was not effective for tremor. Primidone dose was increased gradually to 150 mg 3 times daily but seems he is not compliant. Patient was advised to follow-up in 2 months in October 2020 but seems he did not saw Dr. Moraes afterwards 2D echo EF 65%. Bubble contrast study was negative for PFO/ASO. Aortic sclerosis. No stenosis. (2) Hypokalemia: PLAN: Replace. Check magnesium. EEG completed PLAN: Plan Chronic conditions * History of MEDIA SALES REPRESENTATIVE shunt: No longer functional. Has not seen neurosurgery in many years. * Tremor, chronic. Topiramate was discontinued. Primidone increased to 100 mg 3 times daily. Follow-up neurology as outpatient. * Nicotine dependence: Patient still smokes. Continue nicotine patch. * Hypertension * Hyperlipidemia: Continue with statin VTE prophylaxis: Chemical prophylaxis contraindicated in light of patient's history of intracranial hemorrhage. SCDs. CODE STATUS: Addressed by admitting hospitalist with patient and his sister. Patient was to be full CODE STATUS. He spoke with the sister that if he were to survive cardiopulmonary arrest that he would be profoundly debilitated and would have a long recovery complicated by his underlying neurologic processes. Charges/Coding Visit Charges Inpatient E&M: 60398 Subs Hosp L2
[2022-07-12 09:32] LABS: Anion Gap 7 (5-15); BUN 10 mg/dL (7-18); BUN/Creat Ratio 16.8 RATIO (10-20); Calcium,Total 8.6 mg/dL (8.5-10.1); Chloride 112 mmol/L (98-107); EST Glomerular Filtration Rate 145 mL/min (>60); Est Glom Filt Rate - Afr Amer 176 mL/min (>60); Estimated Creatinine Clearance 121.92 ml/min; Glucose 99 mg/dL (74-106); Magnesium 2.4 mg/dL (1.6-2.6); Potassium 3.9 mmol/L (3.5-5.1); Sodium Level 144 mmol/L (136-145)
--- NOTE | 2022-07-12 11:30 | CASEMGMT ---
YANIQUE spoke with patient's Raeann and she confirmed the plan is for patient to return to [place] at discharge. Peyton Turenr [employer] MARISOL
--- NOTE | 2022-07-12 11:43 | CASEMGMT ---
Discharge Planning Updates sent to [place] with tentative discharge timeframe via [facility]. Nicolette Jimenez.
[2022-07-12] MEDS: Docusate Sodium 100 MG Capsule PO (11:55)
[2022-07-12] MEDS: Pantoprazole Sodium 20 MG Tablet PO (11:56)
[2022-07-12] MEDS: Atenolol 50 MG Tablet PO (11:57)
[2022-07-12] MEDS: Primidone 50 MG Tablet PO (14:14)
[2022-07-12] MEDS: proMETHazine 25 MG Tablet PO (14:14)
--- NOTE | 2022-07-12 17:00 | CT_ITS ---
STUDY: CT BRAIN WITHOUT CONTRAST REASON FOR EXAM: Male, 62 years old. Encephalomalacia RADIATION DOSAGE (If Supplied By Facility): CTDIvol = ( 44.99 ) mGy, DLP = ( 1828.44 ) mGycm TECHNIQUE: Transaxial CT imaging of the brain was performed without administration of intravenous contrast material. Individualized dose optimization techniques were used for this CT. COMPARISON: Comparison is made with prior study dated July 11, 2022. FINDINGS: Normal soft tissue structures. A right-sided parietal ventriculostomy catheter is seen with the tip in the third ventricle. Stable collapse of the right ventricle. There is mild cerebral atrophy with widening of the extra-axial spaces and ventricular dilatation. Stable focal encephalomalacia in the left posterior temporal parietal lobe. Normal basal ganglia and thalami. Stable 1.2 cm heterogeneous attenuation in the left medulla. Normal cerebellum. There is no intracranial hemorrhage. There are no findings of an acute ischemic infarction. Normal visualized paranasal sinuses. CT/Brain/Head without Contrast IMPRESSION: Stable examination. Encephalomalacia in the posterior left temporoparietal lobe. Electronically Signed: Angel Sebastian MD at 12:30 EDT ,
[2022-07-12] MEDS: Primidone 50 MG Tablet 100 MG PO (20:40)
[2022-07-12] MEDS: Atorvastatin Calcium 10 MG Tablet PO (20:40)
[2022-07-13 02:30] VITALS: BP 121/77; PULSE 78; RESP 16; TEMP 37.1; O2SAT 93
[2022-07-13 06:30] VITALS: BP 129/72; PULSE 71; RESP 16; TEMP 36.7; O2SAT 92
[2022-07-13] MEDS: Primidone 50 MG Tablet 100 MG PO (06:34)
[2022-07-13 07:07] VITALS: O2SAT 96
[2022-07-13 07:44] LABS: Absolute Lymphocyte Count 2.26 X10^3/uL (0.83-4.51); Absolute Neutrophil Count 3.3 X10^3/uL (2.0-7.7); Basophil# 0.05 X10^3/uL; Basophil% 0.8 % (0-1); Eosinophil# 0.33 X10^3/uL; Hemoglobin 15.8 g/dL (13.0-16.5); Lymphocyte # 2.26 X10^3/ul (0.83-4.51); Lymphocyte % 34.3 % (19-41); Mean Corp Hgb Conc 32.9 g/dL (32-36); Mean Corpuscular Hgb 30.3 pg (27.0-32.0); Mean Platelet Vol. 10.6 fl (6.2-12.0); Monocyte# 0.66 X10^3/uL; NRBC Flagged by Analyzer 0 % (0-5); Neutrophil # 3.25 X10^3/uL (2.7-7.7); Neutrophil % 49.4 % (47-70); Platelet Count 206 K/mm3 (150-450); RBC Distribution Width CV 14.5 % (11.6-14.6); RBC Distribution Width SD 48.7 fl (35.1-43.9); Red Blood Count 5.22 M/mm3 (4.6-6.2); White Blood Count 6.6 K/mm3 (4.4-11.0)
[2022-07-13 08:23] LABS: Anion Gap 8 (5-15); BUN 12 mg/dL (7-18); BUN/Creat Ratio 13.8 RATIO (10-20); Calcium,Total 8.8 mg/dL (8.5-10.1); Chloride 111 mmol/L (98-107); Creatinine, Serum 0.87 mg/dL (0.70-1.30); EST Glomerular Filtration Rate 94 mL/min (>60); Est Glom Filt Rate - Afr Amer 114 mL/min (>60); Estimated Creatinine Clearance 84.08 ml/min; Glucose 92 mg/dL (74-106); Potassium 3.8 mmol/L (3.5-5.1); Sodium Level 144 mmol/L (136-145)
[2022-07-13] MEDS: Docusate Sodium 100 MG Capsule PO (09:30)
[2022-07-13] MEDS: Pantoprazole Sodium 20 MG Tablet PO (09:31)
[2022-07-13] MEDS: Isosorbide Mononitrate 30 MG Tablet PO (09:31)
[2022-07-13] MEDS: Atenolol 50 MG Tablet PO (09:32)
[2022-07-13] MEDS: Lisinopril 10 MG Tablet PO (09:46)
--- NOTE | 2022-07-13 09:48 | PCM.TXEXTCAR ---
Diet Diet Order/Speech Therapy: 07/12/22 11:12 Diet: Regular - General Food consistency:: Mechanical (Minced/Moist) Liquid Consistency:: Regular/Thin Is pt able to select menu?: Yes Diet Comments: TOTAL FEED, liquids by straw only Routine Orders/Code Status Suppository Type: Dulcolax 10mg Suppository Frequency: Daily PRN Code Status: Full Code Therapies Weight Bearing: Weight bearing as tolerated Extremity Affected:: Bilateral Lower Physical Therapy: Eval and Treat Occupational Therapy: Eval and Treat Speech Therapy: Eval and Treat Problem/Diagnosis (1) Encephalopathy: Status: Acute Code(s): G93.40 - Encephalopathy, unspecified Plan: Possible differentials for stroke, or worsening of residual neurological deficits/or obstructive hydrocephalus Patient currently is in baseline neurological function. He further said he did not walk since [address] Narayan states he is nonambulatory since 2014. Patient opens eyes and has significant aphasia, dysarthria and language deficit. 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 Patient cannot lay flat or keep head still and straight for MRI therefore it was canceled. Repeat CT ordered about 5 PM today. Clinically does not seem patient has seizure or worsening of stroke or new stroke. Patient in group home bound. Tremors are at baseline. As per neurologist note, patient has significant left temporal and midbrain enkephalin malacia. Tremors worsened since February 2020 with functional decline. ADL dependent, cannot feed himself. Topiramate was discontinued as it was not effective for tremor. Primidone dose was increased gradually to 150 mg 3 times daily but seems he is not compliant. Patient was advised to follow-up in 2 months in October 2020 but seems he did not saw Dr. Moraes afterwards 2D echo EF 65%. Bubble contrast study was negative for PFO/ASO. Aortic sclerosis. No stenosis. (2) Hypokalemia: Status: Acute Code(s): E87.6 - Hypokalemia Plan: Replace. Check magnesium. EEG completed Plan Chronic conditions History of GENERAL DISTILLERY WORKER shunt: No longer functional. Has not seen neurosurgery in many years. Tremor, chronic. Topiramate was discontinued. Primidone increased to 100 mg 3 times daily. Follow-up neurology as outpatient. Nicotine dependence: Patient still smokes. Continue nicotine patch. Hypertension Hyperlipidemia: Continue with statin VTE prophylaxis: Chemical prophylaxis contraindicated in light of patient's history of intracranial hemorrhage. SCDs. CODE STATUS: Addressed by admitting hospitalist with patient and his sister. Patient was to be full CODE STATUS. He spoke with the sister that if he were to survive cardiopulmonary arrest that he would be profoundly debilitated and would have a long recovery complicated by his underlying neurologic processes. Allergies/Procedures Done in Hospital Allergies No Known Allergies Allergy (Verified 07/11/22 16:51) Type of Care/Length of Stay Estimated LOS: Convalescent Care Less Than 30 days Type of Care Needed: Skilled Rehab Potential: Fair Prognosis: Fair Additional Orders/Day of Discharge Day of Discharge: 07/13/22 Dietary and Speech Recommendations Dietitian Recommendations/Changes: recommend regular diet w/ fortified foods as tolerated-texture/consistency per [employer] INSPECTOR; ensure plus high protein 120mL 4x/day w/ medpass when PO diet resumed. Discharge Plan Admission Admit Date/Time: 07/11/22 18:57 Primary Reason for Your Visit: ACUTE Encephalopathy Attending Provider: Neel Mcwilliams Primary Care Provider: Manuelito Solo Consulting Providers: Kai Elizabeth Instructions Additional Instructions / Restrictions: Patient needs referral to neurosurgery to evaluate for nonfunctioning GENERAL DIST[employer]ERY WORKER shunt. Discharge Orders/Prescriptions Prescriptions: New primidone 50 mg Tablet 100 mg PO TID Qty: 0 0RF Rx Instructions: 50 mg tablets, (2 tab) 100 mg 3 times daily for 2 weeks and then 3 tablets, (150 mg) 3 times daily thereafter. nicotine 21 mg/24 hr Patch 24 Hour 21 mg transdermal DAILY 28 Days Qty: 0 0RF Continued atenolol 50 mg tablet 50 mg PO DAILY Laxative (bisacodyl) 5 mg tablet 10 mg PO .prn docusate sodium 100 mg capsule 100 mg PO DAILY isosorbide mononitrate 30 mg tablet extended release 24 hr 30 mg PO DAILY lisinopril 10 mg tablet 10 mg PO DAILY loperamide [Anti-Diarrheal (loperamide)] 2 mg tablet 2 mg PO Q1-4H nitroglycerin [Nitrostat] 0.4 mg tablet, sublingual 0.4 mg SUBLINGUAL Q5-15M promethazine 25 mg tablet 25 mg PO Q6H cholecalciferol (vitamin D3) 1,000 unit capsule 2,000 unit PO DAILY calcium carbonate 500 mg calcium (1,250 mg) capsule 500 mg calcium (1,250 mg) capsule 500 mg PO Q6H PRN (Reason: heart burn) albuterol sulfate 2.5 mg /3 mL (0.083 %) solution for nebulization 2.5 mg inhalation Q4H PRN (Reason: sob) sodium phosphates 9.5-3.5 gram/59 mL enema 118 ml [place] ONCE PRN (Reason: constipation) omeprazole 20 mg capsule,delayed release(DR/EC) 20 mg PO DAILY calcium carbonate [Antacid (calcium carbonate)] 200 mg calcium (500 mg) tablet,chewable 400 mg PO Q6H PRN magnesium hydroxide [Milk of Magnesia] 400 mg/5 mL suspension 30 ml PO DAILY PRN (Reason: constipation) polyethylene glycol 3350 17 gram/dose powder 17 g PO DAILY PRN (Reason: constipation) Changed atorvastatin 10 mg tablet 20 mg PO DAILY 30 Days Qty: 60 0RF Discontinued primidone 50 mg tablet 50 mg PO TID Referrals / Follow Up: Manuelito Solo MD [Primary Care Provider] - Delmar Moraes MD [Non-Staff -Ordering Privileges] - Within 2 Weeks (Follow-up for essential Action/kinetic tremor. Residual stroke with obstructive hydrocephalus) Disposition Disposition (needs filled in before D/C Order can be placed): [facility]
[2022-07-13 10:00] VITALS: O2SAT 95
--- NOTE | 2022-07-13 10:05 | DS.PCM_ITS ---
Providers Date of Admission: 07/11/22 Date of Discharge: 07/13/22 Primary Care Physician: Dr. Manuelito Solo MD Reason For Visit: ENCEPHALOPATHY Diagnosis Discharge Diagnosis (1) Encephalopathy: Status: Acute Code(s): G93.40 - Encephalopathy, unspecified Plan: Possible differentials for stroke, or worsening of residual neurological deficits/or obstructive hydrocephalus Patient currently is in baseline neurological function. He further said he did not walk since [address] Narayan states he is nonambulatory since 2014. Patient opens eyes and has significant aphasia, dysarthria and language deficit. 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 Patient cannot lay flat or keep head still and straight for MRI therefore it was canceled. Repeat CT ordered about 5 PM today. Clinically does not seem patient has seizure or worsening of stroke or new stroke. [facility] in [facility]. Tremors are at baseline. As per neurologist note, patient has significant left temporal and midbrain enkephalin malacia. Tremors worsened since February 2020 with functional decline. ADL dependent, cannot feed himself. Topiramate was discontinued as it was not effective for tremor. Primidone dose was increased gradually to 150 mg 3 times daily but seems he is not compliant. Patient was advised to follow-up in 2 months in October 2020 but seems he did not saw Dr. Moraes afterwards 2D echo EF 65%. Bubble contrast study was negative for PFO/ASO. Aortic scleros is. No stenosis. 07/13: Repeat CT head did not show any change or new stroke. Primidone increased t o 100 mg 3 times daily for 2 weeks and then 150 mg 3 times daily as recommended by Dr. Moraes. Lipitor dose increased to 20 mg daily.UA was negative. Acute encephalopathy, Possible metabolic but exact reason unclear and undetermined.Acute stroke or infectious cause Of Encephalopathy ruled out Discharge medication reconciliation done. Discharge follow-up instructions completed. Discharge process discussed with the patient and all questions were answered to patient's satisfaction. Follow-up Dr. Moraes. 2 weeks Total time spent, exact 35 minutes on discharge meds reconciliation, examinatio n, coordination of care with nurses and ancillary staff, review of imaging and blood test and discussion with the patient on follow-up instructions. (2) Hypokalemia: Status: Acute Code(s): E87.6 - Hypokalemia Plan: Replace. Check magnesium. EEG completed Plan Chronic conditions * History of [employer] ADMINISTRATOR shunt: No longer functional. Has not seen neurosurgery in many years. * Tremor, chronic. Topiramate was discontinued. Primidone increased to 100 mg 3 times daily. Follow-up neurology as outpatient. * Nicotine dependence: Patient still smokes. Continue nicotine patch. * Hypertension * Hyperlipidemia: Continue with statin * Chronic moderate protein calorie malnutrition: Financial Planner consult. VTE prophylaxis: Chemical prophylaxis contraindicated in light of patient's history of intracranial hemorrhage. SCDs. CODE STATUS: Addressed by admitting hospitalist with patient and his sister. Patient was to be full CODE STATUS. He spoke with the sister that if he were to survive cardiopulmonary arrest that he would be profoundly debilitated and would have a long recovery complicated by his underlying neurologic processes. Medications at Discharge Home Medications atenolol 50 mg tablet 50 mg PO DAILY 12/29/18 bisacodyl 5 mg tablet (Laxative (bisacodyl)) 10 mg PO .prn 12/29/18 cholecalciferol (vitamin D3) 25 mcg (1,000 unit) capsule 2,000 unit PO DAILY 12/29/18 docusate sodium 100 mg capsule 100 mg PO DAILY 12/29/18 isosorbide mononitrate 30 mg tablet,extended release 24 hr 30 mg PO DAILY 12/29/18 lisinopril 10 mg tablet 10 mg PO DAILY 12/29/18 loperamide 2 mg tablet (Anti-Diarrheal (loperamide)) 2 mg PO Q1-4H 12/29/18 nitroglycerin 0.4 mg sublingual tablet (Nitrostat) 0.4 mg sublingual Q5-15M 12/29/18 promethazine 25 mg tablet 25 mg PO Q6H 12/29/18 albuterol sulfate 2.5 mg/3 mL (0.083 %) solution for nebulization 2.5 mg inhalation Q4H PRN sob 07/31/20 calcium carbonate 500 mg calcium (1,250 mg) capsule 500 mg PO Q6H PRN heart burn 07/31/20 omeprazole 20 mg capsule,delayed release 20 mg PO DAILY 07/31/20 sodium phosphates 9.5 gram-3.5 gram/59 mL enema 118 ml [place] ONCE PRN constipation 07/31/20 calcium carbonate 200 mg calcium (500 mg) chewable tablet (Antacid (calcium carbonate)) 400 mg PO Q6H PRN 09/25/20 magnesium hydroxide 400 mg/5 mL oral suspension (Milk of Magnesia) 30 ml PO DAILY PRN constipation 09/25/20 polyethylene glycol 3350 17 gram/dose oral powder 17 g PO DAILY PRN constipation 09/25/20 atorvastatin 10 mg tablet 20 mg PO DAILY 30 days #60 tabs 07/13/22 nicotine 21 mg/24 hr daily transdermal patch 21 mg transdermal DAILY 28 days #0 ea 07/13/22 primidone 50 mg tablet 100 mg PO TID #0 tabs 07/13/22 Physical Exam Narrative Seen and examined. Patient has baseline residual neurological deficit with moderate to severe language deficit with history of 3 intracerebral hemorrhage and stroke. Patient also has obstructive hydrocephalus and had right ventriculostomy catheter/[employer] ADMINISTRATOR shunt but is not functioning. Physical exam General: Alert, Oriented x3, Cooperative, could not lay his head flat.on his baseline HEENT: Atraumatic, PERRLA, EOMI, Normocephalic Oral: Oral mucosa moist. No Gingival or Mucosal Lesions/ Ulcerations Neck: Neck is twisted to the right side, chronic. Supple, No JVD, Negative Carotid Bruits Lungs: Air entry diminished in bilateral lung bases. No crepitation/rhonchi Cardiovascular: Sinus Regular Rhythm, Normal S1, Normal S2, No murmurs Abdomen: Bowel Sounds Present, Soft, Non Tender, Non-Distended : No renal angle tenderness. No suprapubic tenderness. Extremities: No edema, Capillary Refill Less than 3 Seconds Skin: No rashes, No breakdown Musculoskeletal: No Tenderness to Palpation of Joints or Extremities, keeping both lower extremities for 5 seconds. Muscle strength 4+/5 at major joints and lower extremities. Mild to moderate muscle atrophy of extremities. Neurological: Cranial nerves II-XII grossly intact, DTR 2/4, moderate to severe language deficit and dysarthria. History of left temporal stroke/encephalomalacia Psych/Mental Status: Flat affect, gets easily irritable and agitated. Weight / BMI Weight Weight: 167 lb 15.876 oz Body Mass Index (BMI) 25.4 ABG / Lab / Microbiology Data Result Diagrams: 07/13/22 07:08 07/13/22 07:08 Laboratory: Laboratory Results - last 24 hr 07/13/22 07:08: WBC 6.6, RBC 5.22, Hgb 15.8, Hct 48.0, MCV 92.0, MCH 30.3, MCHC 32.9, RDW Std Deviation 48.7 H, RDW Coeff of Jacqueline 14.5, Plt Count 206, MPV 10.6, Immature Gran % (Auto) 0.500, Neut % (Auto) 49.4, Lymph % (Auto) 34.3, Prentiss % (Auto) 10.0, Eos % (Auto) 5.0, Baso % (Auto) 0.8, Absolute Neuts (auto) 3.3, Absolute Lymphs (auto) 2.26, Nucleated RBC % 0 07/13/22 07:08: Sodium 144, Potassium 3.8, Chloride 111 H, Carbon Dioxide 25.0, Anion Gap 8, BUN 12, Creatinine 0.87, Estim Creat Clear Calc 84.08, Est GFR (MDR D) Af Amer 114, Est GFR (MDRD) Non-Af 94, BUN/Creatinine Ratio 13.8, Glucose 92, Calcium 8.8 Radiography Diagnostic Testing: Radiology Impression Echocardiogram 07/11/22 19:34 Interpretation Summary Technically difficult study. The left ventricular ejection fraction is 65 %. Bubble contrast study technically suboptimal however no obvious PFO/ASD noted. Aortic sclerosis, no stenosis. Ordering Physician: Kai Elizabeth Referring Physician: Manuelito Solo Performed By: Oneil Delgado RCS Brain CT 07/12/22 17:00 IMPRESSION: Stable examination. Encephalomalacia in the posterior left temporoparietal lobe. Electronically Signed: Angel Sebastian MD at 12:30 EDT , Meaningful Use Info Meaningful Use Diagnoses (Choose all that apply): None applicable Discharge Plan Admission Admit Date/Time: 07/11/22 18:57 Primary Reason for Your Visit: ACUTE Encephalopathy Attending Provider: Neel Mcwilliams Primary Care Provider: Manuelito Solo Consulting Providers: Kai Elizabeth Instructions Additional Instructions / Restrictions: Patient needs referral to neurosurgery to evaluate for nonfunctioning [employer]ISTRATOR shunt. Discharge Orders/Prescriptions Prescriptions: New primidone 50 mg Tablet 100 mg PO TID Qty: 0 0RF Rx Instructions: 50 mg tablets, (2 tab) 100 mg 3 times daily for 2 weeks and then 3 tablets, (150 mg) 3 times daily thereafter. nicotine 21 mg/24 hr Patch 24 Hour 21 mg transdermal DAILY 28 Days Qty: 0 0RF Continued atenolol 50 mg tablet 50 mg PO DAILY Laxative (bisacodyl) 5 mg tablet 10 mg PO .prn docusate sodium 100 mg capsule 100 mg PO DAILY isosorbide mononitrate 30 mg tablet extended release 24 hr 30 mg PO DAILY lisinopril 10 mg tablet 10 mg PO DAILY loperamide [Anti-Diarrheal (loperamide)] 2 mg tablet 2 mg PO Q1-4H nitroglycerin [Nitrostat] 0.4 mg tablet, sublingual 0.4 mg SUBLINGUAL Q5-15M promethazine 25 mg tablet 25 mg PO Q6H cholecalciferol (vitamin D3) 1,000 unit capsule 2,000 unit PO DAILY calcium carbonate 500 mg calcium (1,250 mg) capsule 500 mg calcium (1,250 mg) capsule 500 mg PO Q6H PRN (Reason: heart burn) albuterol sulfate 2.5 mg /3 mL (0.083 %) solution for nebulization 2.5 mg inhalation Q4H PRN (Reason: sob) sodium phosphates 9.5-3.5 gram/59 mL enema 118 ml GA ONCE PRN (Reason: constipation) omeprazole 20 mg capsule,delayed release(DR/EC) 20 mg PO DAILY calcium carbonate [Antacid (calcium carbonate)] 200 mg calcium (500 mg) tablet,chewable 400 mg PO Q6H PRN magnesium hydroxide [Milk of Magnesia] 400 mg/5 mL suspension 30 ml PO DAILY PRN (Reason: constipation) polyethylene glycol 3350 17 gram/dose powder 17 g PO DAILY PRN (Reason: constipation) Changed atorvastatin 10 mg tablet 20 mg PO DAILY 30 Days Qty: 60 0RF Discontinued primidone 50 mg tablet 50 mg PO TID Referrals / Follow Up: Manuelito Solo MD [Primary Care Provider] - Delmar Moraes MD [Non-Staff -Ordering Privileges] - Within 2 Weeks (Follow-up for essential Action/kinetic tremor. Residual stroke with obstructive hydrocephalus) Disposition Disposition (needs filled in before D/C Order can be placed): [facility] Charges/Coding Visit Charges Inpatient E&M: 21264 Disch Hosp >30min
[2022-07-13 10:30] VITALS: BP 101/62; PULSE 81; RESP 16; TEMP 36.6; O2SAT 95
--- NOTE | 2022-07-13 12:27 | NURSING ---
Called in report to Ann hayes [place] at 1225.
[2022-07-13 12:48] VITALS: BMI 25.4
== END 2022-07-13 11:48 | disposition skilled nursing facility (03) | DRG 71 ==
LOC: ED 18:44 → PCU 19:02
PROVIDERS: Emergency Provider Emergency Medicine; PCP Family Medicine; Visit Provider Internal Medicine
DX: G93.41 Metabolic encephalopathy (principal); G91.1 Obstructive hydrocephalus; I70.0 Atherosclerosis of aorta; E78.5 Hyperlipidemia, unspecified; E87.6 Hypokalemia; F17.210 Nicotine dependence, cigarettes, uncomplicated; I10 Essential (primary) hypertension; E55.9 Vitamin D deficiency, unspecified; G25.0 Essential tremor; Z98.2 Presence of cerebrospinal fluid drainage device; R47.1 Dysarthria and anarthria; Z79.899 Other long term (current) drug therapy; Z68.25 Body mass index [BMI] 25.0-25.9, adult
CPT/HCPCS: 36415; 70450; 70496; 70498; 71045; 74018; 80048; 81001; 82140; 83735; 84484; 85025; 85610; 85730; 87426; 92526; 92610; 93005; 93306; 95819; 97162; 97166; 97802; 99285; 99406; Q9957; Q9967; A4216; C8929